=== PATIENT | male | born 1990 | race Hispanic/Latino ===

== ENCOUNTER 2019-03-16 18:01 | Emergency (ER) | payer SELFPAY ==
[~2019-03-16] VITALS: Ht 170.2 cm; Wt 114.3 kg
[2019-03-16] MEDS ORDERED: ACETAMINOPHEN 325 MG TAB PO ONE (18:45)
[2019-03-16 19:33] VITALS: BP 162/89
== END 2019-03-16 19:39 | disposition home or self-care (01) ==
LOC: FSED 18:01
DX: J03.90 Acute tonsillitis, unspecified (principal)
CPT/HCPCS: 83518; 87400; 99283